=== PATIENT | female | born 1985 | race Caucasian/White ===

== ENCOUNTER 2017-07-01 15:57 | Emergency (ER) | payer BC ==
[2017-07-01] MEDS ORDERED: Sodium Chloride 0.9% 2.5 ML Syringe FLUSH PRN (16:11)
[2017-07-01] MEDS ORDERED: Sodium Chloride 0.9% 10 ML Syringe FLUSH PRN (16:11)
[2017-07-01] MEDS ORDERED: Ketorolac 30 MG/ML SDV IVPUSH ONE (16:11)
--- NOTE | 2017-07-01 16:12 | EDM.PDOC ---
ED HPI GENERAL MEDICAL PROBLEM - General Chief Complaint: Chest Pain Stated Complaint: CHEST PAIN Time Seen by Provider: 07/01/17 15:59 - History of Present Illness INITIAL COMMENTS - FREE TEXT/NARRATIVE: HISTORY AND PHYSICAL: History of present illness: Patient is a 32-year-old female with no significant past medical or past surgical history and no social history presents with 2 episodes of feeling short of breath and having a catchy like sensation with a skipped beat or palpitation with some chest discomfort. Patient says she had a normal day yesterday and went to sleep at 10 PM and at 10:30 woke from sleep feeling like she could not catch her breath and had some intermittent palpitations and some chest discomfort which she says was more related to her breathing than actual discomfort.. She said that her arm got numb, she thought it was only her left arm, and she had no cough lightheadedness nausea vomiting or abdominal pain. The patient said she went and did meditation breathing and the episode lasted approximately 1 hour and then stopped and she went back to bed and slept the whole night. She woke up this morning at her usual time and says that she has had a persistent headache throughout the day today she does get headaches often but this seems to just be worse than usual. She has no neck pain no nausea no vomiting. The patient says that she was at her desk at 1 PM today and a similar episode occurred where she felt a weird irregular heartbeat/catchy like sensation and then she felt like she could not catch her breath and she felt short of breath. Again she had discomfort which she describes more as related to the shortness of breath than to actual discomfort. Below this episode and the earlier episode she says it was more midsternal with the discomfort but again related more to breathing and there was no radiation of the discomfort. She says that it has eased up otology here and she has no associated vomiting fever abdominal pain leg pain or swelling. Patient has no significant family history and only drinks occasionally. Patient is on oral control since she was 17 years of age. Patient says she did have a period of time when she was having anxiety issues and panic attacks and this occurred when she was taken off her control pills. She started having anxiety issues was placed on Zoloft which made her feel worse which she stopped and she got back on control she says that the panic attacks stopped. She has not had them ever since. She says she does not feel particularly stressed. Review of systems: As per history of present illness and below otherwise all systems reviewed and negative. Past medical history: As per history of present illness and as reviewed below otherwise noncontributory. Surgical history: As per history of present illness and as reviewed below otherwise noncontributory. Social history: No reported history of drug or alcohol abuse. Family history: As per history of present illness and as reviewed below otherwise noncontributory. Physical exam: General: Well-developed well-nourished female speaking clearly and easily in the ED and seems a little anxious in the room. Vital signs were noted by me HEENT: Atraumatic, normocephalic, pupils reactive, negative for conjunctival pallor or scleral icterus, mucous membranes moist, throat clear, neck supple, nontender, trachea midline. No cervical adenopathy nuchal rigidity or discrete sinus or scalp tenderness Lungs: Clear to auscultation, breath sounds equal bilaterally, chest nontender. Heart: S1S2, regular, negative for clicks, rubs, or JVD. Abdomen: Soft, nondistended, nontender. Negative for masses or hepatosplenomegaly. Negative for costovertebral tenderness. Pelvis: Stable nontender. Genitourinary: Deferred. Rectal: Deferred. Extremities: Atraumatic, negative for cords or calf pain. Neurovascular unremarkable. No pedal edema or leg asymmetry Neuro: Awake, alert, oriented. Cranial nerves II through XII unremarkable. Cerebellum unremarkable. Motor and sensory unremarkable throughout. Exam nonfocal. Diagnostics: EKG CBC CMP troponin d-dimer TSH UA UCG chest x-ray Therapeutics: IV O2 monitor Toradol She took aspirin earlier today Currently in the ED we are waiting the patient's workup and according to nursing she is having occasional PVCs and the patient is staring at the monitor observing these and is feeling somewhat anxious about them. I was made aware of this and we will try to reassure her. Repeat vitals [id number] reveal a blood pressure which is much improved at 118/78 in her rate is 74 and a respiratory rate of 18. All lab tests will be discussed with patient and we are currently waiting the chest x-ray. I will discuss with her the PVCs and the need for follow-up to monitor and primary care and/or Cardiologic involvement. When I was in the room discussing the patient's testing results I did see that the patient was having PVC's I discussed all testing results with the patient and significant other at bedside at 1805pm. I discussed with her possible observation admission and she would like to decline at this time and she has a provider in the clinic. I will give her a prescription for 24-hour Holter to be placed tomorrow morning as he had no ability to place it this evening. I asked her to start journaling her symptoms to push hydration to rest and to avoid caffeinated products. I have stressed with her the importance of returning to the ER if the symptoms evolve or persist or she feels any insecurity with an outpatient workup. She states understanding and accepts this and would like to be discharged. Impression: Episodic palpitations/shortness of breath, frequent PVCs stable Definitive disposition and diagnosis as appropriate pending reevaluation and review of above. chest Pain Score (Numeric/FACES): 5 - Related Data Allergies Allergy/AdvReac Type Severity Reaction Status Date / Time No Known Allergies Allergy Verified 07/01/17 16:02 Home Meds: Home Meds Control 07/01/17 [History] Past Medical History - Past Health History Medical/Surgical History: Denies Medical/Surgical History - Infectious Disease History Infectious Disease History: Reports: None Social & Family History - Family History Family Medical History: Noncontributory - Tobacco Use Smoking Status *Q: Never Smoker - Recreational Drug Use Recreational Drug Use: No ED ROS GENERAL - Review of Systems Review Of Systems: ROS reveals no pertinent complaints other than HPI. ED EXAM, GENERAL - Physical Exam Exam: See Below (See dictation) Course - Vital Signs Last Recorded V/S: Last Vital Signs Temp 36.9 C 07/01/17 16:03 Pulse 74 07/01/17 17:48 Resp 18 07/01/17 17:48 BP 118/78 07/01/17 17:48 Pulse Ox 97 07/01/17 17:48 - Orders/Labs/Meds Orders: Active Orders 24 hr Category Date Time Status Cardiac Monitoring [RC] . DIRECTED Care 07/01/17 16:11 Active EKG Documentation Completion [RC] STAT Care 07/01/17 16:11 Active Oxygen Therapy, ED [RC] ASDIRECTED Care 07/01/17 16:11 Active Pulse Oximetry [RC] ASDIRECTED Care 07/01/17 16:11 Active Chest 1V Frontal [CR] Stat Exams 07/01/17 16:11 Ordered HCG QUALITATIVE,URINE [URCHEM] Stat Lab 07/01/17 17:15 Ordered UA W/MICROSCOPIC [URIN] Stat Lab 07/01/17 17:15 Ordered Sodium Chloride 0.9% [Saline Flush] Med 07/01/17 16:11 Active 10 ml FLUSH ASDIRECTED PRN Sodium Chloride 0.9% [Saline Flush] Med 07/01/17 16:11 Active 2.5 ml FLUSH ASDIRECTED PRN Saline Lock Insert [OM.PC] Stat Oth 07/01/17 16:11 Ordered Medication Orders Sodium Chloride (Saline Flush) 10 ml FLUSH ASDIRECTED PRN PRN Reason: Keep Vein Open Sodium Chloride (Saline Flush) 2.5 ml FLUSH ASDIRECTED PRN PRN Reason: Keep Vein Open Labs: Laboratory Tests 07/01/17 07/01/17 07/01/17 Range/Units 16:25 16:25 16:25 WBC 7.43 (4.0-11.0) K/uL RBC 4.26 L (4.30-5.90) M/uL Hgb 12.0 (12.0-16.0) g/dL Hct 36.3 (36.0-46.0) % MCV 85.2 (80.0-98.0) fL MCH 28.2 (27.0-32.0) pg MCHC 33.1 (31.0-37.0) g/dL RDW Std Deviation 40.2 (28.0-62.0) fl RDW Coeff of Chas 13 (11.0-15.0) % Plt Count 220 (150-400) K/uL MPV 11.00 (7.40-12.00) fL Neut % (Auto) 45.8 L (48.0-80.0) % Lymph % (Auto) 42.4 H (16.0-40.0) % Conway % (Auto) 10.4 (0.0-15.0) % Eos % (Auto) 1.3 (0.0-7.0) % Baso % (Auto) 0.1 (0.0-1.5) % Neut # (Auto) 3.4 (1.4-5.7) K/uL Lymph # (Auto) 3.2 H (0.6-2.4) K/uL Conway # (Auto) 0.8 (0.0-0.8) K/uL Eos # (Auto) 0.1 (0.0-0.7) K/uL Baso # (Auto) 0.0 (0.0-0.1) K/uL D-Dimer, Quantitative 0.26 (0.0-0.52) mg/LFEU Sodium 139 (136-145) mmol/L Potassium 3.8 (3.5-5.1) mmol/L Chloride 104 (98-107) mmol/L Carbon Dioxide 24.6 (21.0-32.0) mmol/L BUN 13 (7.0-18.0) mg/dL Creatinine 0.8 (0.6-1.0) mg/dL Est Cr Clr Drug Dosing 91.68 mL/min Estimated GFR (MDRD) > 60.0 ml/min Glucose 101 (74-106) mg/dL Calcium 9.0 (8.5-10.1) mg/dL Total Bilirubin 0.2 (0.2-1.0) mg/dL AST 18 (15-37) IU/L ALT 17 (14-63) IU/L Alkaline Phosphatase 38 L (46-116) U/L Troponin I < 0.050 (0.000-0.056) ng/mL Total Protein 7.4 (6.4-8.2) g/dL Albumin 3.0 L (3.4-5.0) g/dL Globulin 4.4 H (2.0-3.5) g/dL Albumin/Globulin Ratio 0.7 L (1.3-2.8) TSH 3rd Generation 2.16 (0.36-3.74) uIU/mL Urine Color Urine Appearance Urine pH (5.0-8.0) Ur Specific [place] (1.001-1.035) Urine Protein (NEGATIVE) mg/dL Urine Glucose (UA) (NEGATIVE) mg/dL Urine Ketones (NEGATIVE) mg/dL Urine Occult Blood (NEGATIVE) Urine Nitrite (NEGATIVE) Urine Bilirubin (NEGATIVE) Urine Urobilinogen (<2.0) EU/dL Ur Leukocyte Esterase (NEGATIVE) Urine RBC (0-2/HPF) Urine WBC (0-5/HPF) Ur Epithelial Cells (NONE-FEW) Urine Bacteria (NEGATIVE) Urine HCG, Qual (NEGATIVE) 07/01/17 07/01/17 Range/Units 17:15 17:15 WBC (4.0-11.0) K/uL RBC (4.30-5.90) M/uL Hgb (12.0-16.0) g/dL Hct (36.0-46.0) % MCV (80.0-98.0) fL MCH (27.0-32.0) pg MCHC (31.0-37.0) g/dL RDW Std Deviation (28.0-62.0) fl RDW Coeff of Chas (11.0-15.0) % Plt Count (150-400) K/uL MPV (7.40-12.00) fL Neut % (Auto) (48.0-80.0) % Lymph % (Auto) (16.0-40.0) % Conway % (Auto) (0.0-15.0) % Eos % (Auto) (0.0-7.0) % Baso % (Auto) (0.0-1.5) % Neut # (Auto) (1.4-5.7) K/uL Lymph # (Auto) (0.6-2.4) K/uL [place] # (Auto) (0.0-0.8) K/uL Eos # (Auto) (0.0-0.7) K/uL Baso # (Auto) (0.0-0.1) K/uL D-Dimer, Quantitative (0.0-0.52) mg/LFEU Sodium (136-145) mmol/L Potassium (3.5-5.1) mmol/L Chloride (98-107) mmol/L Carbon Dioxide (21.0-32.0) mmol/L BUN (7.0-18.0) mg/dL Creatinine (0.6-1.0) mg/dL Est Cr Clr Drug Dosing mL/min Estimated GFR (MDRD) ml/min Glucose (74-106) mg/dL Calcium (8.5-10.1) mg/dL Total Bilirubin (0.2-1.0) mg/dL AST (15-37) IU/L ALT (14-63) IU/L Alkaline Phosphatase (46-116) U/L Troponin I (0.000-0.056) ng/mL Total Protein (6.4-8.2) g/dL Albumin (3.4-5.0) g/dL Globulin (2.0-3.5) g/dL Albumin/Globulin Ratio (1.3-2.8) TSH 3rd Generation (0.36-3.74) uIU/mL Urine Color YELLOW Urine Appearance CLEAR Urine pH 6.0 (5.0-8.0) Ur Specific [place] 1.020 (1.001-1.035) Urine Protein NEGATIVE (NEGATIVE) mg/dL Urine Glucose (UA) NEGATIVE (NEGATIVE) mg/dL Urine Ketones NEGATIVE (NEGATIVE) mg/dL Urine Occult Blood NEGATIVE (NEGATIVE) Urine Nitrite NEGATIVE (NEGATIVE) Urine Bilirubin NEGATIVE (NEGATIVE) Urine Urobilinogen 0.2 (<2.0) EU/dL Ur Leukocyte Esterase NEGATIVE (NEGATIVE) Urine RBC 0-1 (0-2/HPF) Urine WBC 0-1 (0-5/HPF) Ur Epithelial Cells OCCASIONAL (NONE-FEW) Urine Bacteria RARE (NEGATIVE) Urine HCG, Qual NEGATIVE (NEGATIVE) Meds: Medications Generic Name Dose Route Start Last Admin Trade Name Freq PRN Reason Stop Dose Admin Sodium Chloride 10 ml 07/01/17 16:11 Saline Flush FLUSH ASDIRECTED PRN Keep Vein Open Sodium Chloride 2.5 ml 07/01/17 16:11 Saline Flush FLUSH ASDIRECTED PRN Keep Vein Open Discontinued Medications Generic Name Dose Route Start Last Admin Trade Name Freq PRN Reason Stop Dose Admin Ketorolac Tromethamine 30 mg 07/01/17 16:11 07/01/17 16:55 Toradol IVPUSH 07/01/17 16:12 30 mg ONETIME ONE Administration Departure - Departure Time of Disposition: 18:14 Disposition: Home, Self-Care 01 Condition: Good Clinical Impression: PVCs (premature ventricular contractions) Dyspnea Qualifiers: Dyspnea type: unspecified Qualified Code(s): R06.00 - Dyspnea, unspecified - Discharge Information Referrals: PCP,None [Primary Care Provider] - Forms: ED Department Discharge Additional Instructions: The following information is given to patients seen in the emergency department who are being discharged to home. This information is to outline your options for follow-up care. We provide all patients seen in our emergency department with a follow-up referral. The need for follow-up, as well as the timing and circumstances, are variable depending upon the specifics of your emergency department visit. If you don't have a primary care physician on staff, we will provide you with a referral. We always advise you to contact your personal physician following an emergency department visit to inform them of the circumstance of the visit and for follow-up with them and/or the need for any referrals to a consulting specialist. The emergency department will also refer you to a specialist when appropriate. This referral assures that you have the opportunity for followup care with a specialist. All of these measure are taken in an effort to provide you with optimal care, which includes your followup. Under all circumstances we always encourage you to contact your private physician who remains a resource for coordinating your care. When calling for followup care, please make the office aware that this follow-up is from your recent emergency room visit. If for any reason you are refused follow-up, please contact the [facility] emergency department at and ask to speak to the emergency department charge nurse. [facility] Primary care- [place] [address] Please go and have a Holter monitor placed tomorrow using the prescription you have been given and start journaling your symptoms as we discussed. Rest push hydration and avoid caffeinated products. Please contact her provider in the clinic to schedule a follow-up to be done after the Holter monitor is completed. Return to ER as needed and as we discussed. - My Orders Last 24 Hours: My Active Orders 07/01/17 16:11 Cardiac Monitoring [RC] . DIRECTED EKG Documentation Completion [RC] STAT Oxygen Therapy, ED [RC] ASDIRECTED Pulse Oximetry [RC] ASDIRECTED Chest 1V Frontal [CR] Stat Sodium Chloride 0.9% [Saline Flush] 10 ml FLUSH ASDIRECTED PRN Sodium Chloride 0.9% [Saline Flush] 2.5 ml FLUSH ASDIRECTED PRN Saline Lock Insert [OM.PC] Stat 07/01/17 17:15 HCG QUALITATIVE,URINE [URCHEM] Stat UA W/MICROSCOPIC [URIN] Stat - Assessment/Plan Last 24 Hours: My Active Orders 07/01/17 16:11 Cardiac Monitoring [RC] . DIRECTED EKG Documentation Completion [RC] STAT Oxygen Therapy, ED [RC] ASDIRECTED Pulse Oximetry [RC] ASDIRECTED Chest 1V Frontal [CR] Stat Sodium Chloride 0.9% [Saline Flush] 10 ml FLUSH ASDIRECTED PRN Sodium Chloride 0.9% [Saline Flush] 2.5 ml FLUSH ASDIRECTED PRN Saline Lock Insert [OM.PC] Stat 07/01/17 17:15 HCG QUALITATIVE,URINE [URCHEM] Stat UA W/MICROSCOPIC [URIN] Stat
[2017-07-01 17:27] LABS: CHLORIDE,CL 104 mmol/L (98-107); SODIUM,NA 139 mmol/L (136-145)
--- NOTE | 2017-07-02 10:30 | CR ---
EXAM DATE: 07/01/17 PATIENT'S AGE: 32 Patient: RUSTY MONTANO Facility: [place], [place] Site . Site : 1985 Study: XRay Chest [id number] 6:18:17 PM Ordering Physician: Dixon Hairston Final Report: Indication: Chest pain, shortness of breath Technique: Chest 1 view Comparison: None Findings/Impression: Cardiovascular and mediastinum: Heart size and vasculature are normal in caliber and appearance. Mediastinum is within normal limits. Lungs and pleural space: Lungs are clear. No sign of infiltrate or mass. No sign of pleural effusion. No pneumothorax. Bones and soft tissues: No significant findings. Dictated by Alondra Humphrey MD @ Jul 01 2017 6:49PM (Electronic Signature) Report Signed by Proxy. [facility] MED[facility] CENTERJulio
== END 2017-07-01 18:35 | disposition home or self-care (01) ==
LOC: MW.ED 15:57
DX: I49.3 Ventricular premature depolarization (principal); R06.00 Dyspnea, unspecified
CPT/HCPCS: 36415; 71045; 80053; 81001; 81025; 84443; 84484; 85025; 85379; 93005; 96374; 99285; J1885; 99283

== ENCOUNTER 2019-09-25 22:01 | Emergency (ER) | payer BC ==
[2019-09-25] MEDS ORDERED: Diphtheria,Pertussis(Acell),Tetanus Vaccine 0.5 ML Syringe IM ONE (22:23)
--- NOTE | 2019-09-25 22:27 | EDM.PDOC ---
ED HPI GENERAL MEDICAL PROBLEM - General Chief Complaint: Laceration Stated Complaint: LACERATION UPPER LIP Time Seen by Provider: 09/25/19 22:19 - History of Present Illness INITIAL COMMENTS - FREE TEXT/NARRATIVE: History of present illness: [] This patient was playing badminton when the racquet broke apart and the frame over the web trainings hit her in the lip. She has no other injury and says it is only skin. She does not have any neck pain and was not knocked down. Review of systems: As per history of present illness and below otherwise all systems reviewed and negative. Past medical history: As per history of present illness and as reviewed below otherwise noncontributory. Surgical history: As per history of present illness and as reviewed below otherwise noncontributory. Social history: No reported history of drug or alcohol abuse. Family history: As per history of present illness and as reviewed below otherwise noncontributory. Physical exam: Constitutional - well developed, well-nourished and in no acute distress HEENT -fine cleared by Nexus criteria the patient has a 1 cm U-shaped laceration based laterally toward the right in the upper lip which passes through the vermilion border. It is full-thickness but not through and through. She is normocephalic, no evidence of trauma - external nose and mouth normal - no mass in neck and no JVD - mucosae moist EYES - full EOM, PERRL, no icterus - no evidence of inflammation, injection, or drainage Respiratory - no respiratory distress, equal bilateral expansion, lungs clear to auscultation and no abnormal lung sounds Cardiovascular - Regular Rhythm with S1 and S2 appreciated and no murmur, gallop or rub. Peripheral pulses symmetrically normal in all four extremities GI - abdomen soft without distension or organomegaly - normal bowel sounds - no guard or rebound Musculoskeletal no gross deformity of long bones or joints - no tenderness, swelling or edema Neurologic - Alert and oriented times four - CN II-XII grossly intact - motor sensory and coordination symmetrically normal Psychiatric - appropriate mood and affect with normal thought content Hematologic - No petechiae or purpura - mucosa appropriate color and sclera not pale - normal nail bed color and refill Integument - no rash or evidence of trauma - normal turgor Diagnostics: [] Therapeutics: [] Impression: [] Plan: [] Definitive disposition and diagnosis as appropriate pending reevaluation and review of above. lip Pain Score (Numeric/FACES): 2 - Related Data Allergies Allergy/AdvReac Type Severity Reaction Status Date / Time sulfamethoxazole Allergy Other Verified 09/25/19 22:19 [From Bactrim] trimethoprim [From Bactrim] Allergy Other Verified 09/25/19 22:19 Home Meds: Home Meds . [No Known Home Meds] 09/25/19 [History] Past Medical History - Past Health History Medical/Surgical History: Denies Medical/Surgical History - Infectious Disease History Infectious Disease History: Reports: None - Past Surgical History HEENT Surgical History: Reports: Oral Surgery Other Musculoskeletal Surgeries/Procedures:: hip surgery Social & Family History - Family History Family Medical History: Noncontributory - Tobacco Use Smoking Status *Q: Never Smoker Second Hand Smoke Exposure: No - Recreational Drug Use Recreational Drug Use: No ED ROS GENERAL - Review of Systems Review Of Systems: Comprehensive ROS is negative, except as noted in HPI. ED EXAM, SKIN/RASH Exam: See Below Text/Narrative:: Physical exam is in my HPI ED SKIN PROCEDURES - Laceration/Wound Repair Face Appearance: Superficial Distal NVT: Neuro & Vascular Intact Anesthetic Type: Local Local Anesthesia - Lidocaine (Xylocaine): 1% Plain Local Anesthetic Volume: 3cc Skin Prep: Saline Exploration/Debridement/Repair: In a Bloodless Field Closed with: Sutures Lac/Wound length In cm: 1 Suture Size: 6-0 Suture Type: Nylon # of Sutures: 5 Course - Vital Signs Text/Narrative:: The laceration was 1 cm in length and it took 5 stitches to close it Last Recorded V/S: Last Vital Signs Temp 97.0 F 09/25/19 22:16 Pulse 104 H 09/25/19 22:16 Resp 16 09/25/19 22:16 BP 125/77 09/25/19 22:16 Pulse Ox 95 09/25/19 22:16 - Orders/Labs/Meds Orders: Active Orders 24 hr Category Date Time Status Vaccines to be Administered [RC] PER UNIT ROUTINE Care 09/25/19 22:23 Active Meds: Medications Discontinued Medications Generic Name Dose Route Start Last Admin Trade Name Freq PRN Reason Stop Dose Admin Diphtheria/Tetanus/Acell Pertussis 0.5 ml 09/25/19 22:23 09/25/19 22:42 Adacel IM 09/25/19 22:24 0.5 ml .ONCE ONE Administration Lidocaine HCl 5 ml 09/25/19 22:23 09/25/19 22:43 Xylocaine-Mpf 1% INJECT 09/25/19 22:24 5 ml ONETIME ONE Administration Departure - Departure Time of Disposition: 23:20 Disposition: Home, Self-Care 01 Condition: Good Clinical Impression: Laceration of lip - Discharge Information Instructions: Laceration Care, Adult Referrals: PCP,None [Primary Care Provider] - Forms: ED Department Discharge Additional Instructions: The following information is given to patients seen in the emergency department who are being discharged to home. This information is to outline your options for follow-up care. We provide all patients seen in our emergency department with a follow-up referral. The need for follow-up, as well as the timing and circumstances, are variable depending upon the specifics of your emergency department visit. If you don't have a primary care physician on staff, we will provide you with a referral. We always advise you to contact your personal physician following an emergency department visit to inform them of the circumstance of the visit and for follow-up with them and/or the need for any referrals to a consulting specialist. The emergency department will also refer you to a specialist when appropriate. This referral assures that you have the opportunity for follow-up care with a specialist. All of these measure are taken in an effort to provide you with optimal care, which includes your follow-up. Under all circumstances we always encourage you to contact your private physician who remains a resource for coordinating your care. When calling for follow-up care, please make the office aware that this follow-up is from your recent emergency room visit. If for any reason you are refused follow-up, please contact the [facility] Emergency Department at and asked to speak to the emergency department charge nurse. [facility] - Primary Care [address] [place] [id number] [address] You should come out in 5 to 7 days Sepsis Event Note (ED) - Evaluation Sepsis Screening Result: No Definite Risk - Focused Exam Vital Signs: Vital Signs Temp Pulse Resp BP Pulse Ox 09/25/19 22:16 97.0 F 104 H 16 125/77 95 - My Orders Last 24 Hours: My Active Orders 09/25/19 22:23 Vaccines to be Administered [RC] PER UNIT ROUTINE - Assessment/Plan Last 24 Hours: My Active Orders 09/25/19 22:23 Vaccines to be Administered [RC] PER UNIT ROUTINE
== END 2019-09-25 23:30 | disposition home or self-care (01) ==
LOC: MW.ED 22:01
DX: S01.511A Laceration without foreign body of lip, initial encounter (principal); Z88.2 Allergy status to sulfonamides; Z23 Encounter for immunization; W22.8XXA Striking against or struck by other objects, initial encounter
CPT/HCPCS: 12011; 90471; 90715; 99283; J2001; 99282

== ENCOUNTER 2020-06-25 02:36 | Emergency (ER) | payer BC ==
[2020-06-25] MEDS ORDERED: Sodium Chloride 0.9% 1,000 ML IV ONE (03:17)
[2020-06-25] MEDS ORDERED: Sodium Chloride 0.9% 10 ML Syringe FLUSH PRN (03:17)
[2020-06-25] MEDS ORDERED: Ondansetron 4 MG/2 ML SDV IVPUSH ONE (03:17)
[2020-06-25 03:36] LABS: BLOOD UREA NITROGEN,BUN 12 mg/dL (7.0-18.0); CARBON DIOXIDE,CO2 21.6 mmol/L (21.0-32.0); CHLORIDE,CL 106 mmol/L (98-107); GLUCOSE RANDOM 119 mg/dL (74-106); LIPASE 145 U/L (73-393); POTASSIUM,K 3.8 mmol/L (3.5-5.1); SODIUM,NA 143 mmol/L (136-145)
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
== END 2020-06-25 04:37 | disposition home or self-care (01) ==
LOC: MW.ED 02:36
DX: F10.129 Alcohol abuse with intoxication, unspecified (principal); R10.816 Epigastric abdominal tenderness; R11.2 Nausea with vomiting, unspecified; Y90.7 Blood alcohol level of 200-239 mg/100 ml; Z88.1 Allergy status to other antibiotic agents
CPT/HCPCS: 36415; 80053; 80305; 80307; 81001; 81025; 83690; 85025; 93005; J2405; J7030; 96374; 99284-25

== ENCOUNTER 2020-10-12 14:52 | Emergency (ER) | payer OTHER, BC ==
[2020-10-12] MEDS ORDERED: Sodium Chloride 0.9% 2.5 ML Syringe FLUSH PRN (16:03)
[2020-10-12] MEDS ORDERED: Sodium Chloride 0.9% 10 ML Syringe FLUSH PRN (16:03)
[2020-10-12] MEDS ORDERED: diphenhydrAMINE 50 MG/ML SDV IVPUSH ONE (16:04)
[2020-10-12] MEDS ORDERED: Metoclopramide 10 MG/2 ML SDV IVPUSH ONE (16:04)
[2020-10-12] MEDS ORDERED: Sodium Chloride 0.9% 1,000 ML IV ONE (16:04)
[2020-10-12] MEDS ORDERED: Acetaminophen/Butalbital/Caffeine 325-50-40 MG Tab PO ONE (16:05)
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
[2020-10-12 17:22] LABS: BLOOD UREA NITROGEN,BUN 13 mg/dL (7.0-18.0); CARBON DIOXIDE,CO2 24.3 mmol/L (21.0-32.0); CHLORIDE,CL 101 mmol/L (98-107); GLUCOSE RANDOM 92 mg/dL (74-106); POTASSIUM,K 3.7 mmol/L (3.5-5.1); SODIUM,NA 138 mmol/L (136-145)
--- NOTE | 2020-10-12 17:54 | CT ---
INDICATION: Concussion. TECHNIQUE: Noncontrast CT images were acquired through the brain. COMPARISON: None. FINDINGS: The ventricles and sulci are within normal limits for patient age. No mass effect or midline shift. The lee-white differentiation is maintained. No acute intracranial hemorrhage or pathologic extra-axial fluid collection. The calvarium is intact. The globes are symmetric. The visualized paranasal sinuses and mastoid air cells are clear. IMPRESSION: No acute intracranial hemorrhage or mass effect. Please note that all CT scans at this facility use dose modulation, iterative reconstruction, and/or weight-based dosing when appropriate to reduce radiation dose to as low as reasonably achievable. Dictated by Dat Abraham MD @ 10/12/2020 5:52:[address] Dat Abraham @ Oct 12 2020 5:52PM
== END 2020-10-12 18:43 | disposition home or self-care (01) ==
LOC: MW.ED 14:52
DX: S06.0X9A Concussion with loss of consciousness of unspecified duration, initial encounter (principal); Z88.2 Allergy status to sulfonamides; V94.0XXA Hitting object or bottom of body of water due to fall from watercraft, initial encounter
CPT/HCPCS: 36415; 70450; 80053; 85025; 96374; 96375; 99284; A9270; J1200; J2765; J7030

== ENCOUNTER 2022-01-14 20:19 | Inpatient (IN) | payer BC ==
[2022-01-14] MEDS: Lactated Ringers 1,000 ML IV SCH (20:30)
[2022-01-14] MEDS ORDERED: Misoprostol 25 MCG (1/4 of 100 MCG) Tab VAG PRN ×2 (21:02)
[2022-01-14] MEDS ORDERED: Carboprost Tromethamine 250 MCG/1 ML Amp IM PRN (21:02)
[2022-01-14] MEDS ORDERED: Sodium Chloride 0.9% 10 ML Syringe FLUSH PRN (21:02)
[2022-01-14] MEDS ORDERED: Methylergonovine 0.2 MG/1 ML Amp IM PRN (21:02)
[2022-01-14] MEDS ORDERED: Sodium Chloride 0.9% 2.5 ML Syringe FLUSH PRN (21:02)
[2022-01-14] MEDS ORDERED: Misoprostol 200 MCG Tab PO PRN (21:02)
[2022-01-14] MEDS ORDERED: Lidocaine 1% 50 ML MDV INJECT PRN (21:02)
[2022-01-14] MEDS ORDERED: Tranexamic Acid 1,000 MG in Sodium Chloride 0.9% 100 ML IV PRN (21:02)
[2022-01-14] MEDS ORDERED: Butorphanol 1 MG/ML SDV IVPUSH PRN (21:02)
[2022-01-14] MEDS ORDERED: Terbutaline 1 MG/ML SDV SUBCUT PRN (21:02)
[2022-01-14] MEDS ORDERED: Sodium Chloride 0.9% 20 ML SDV IV PRN (21:02)
[2022-01-14] MEDS ORDERED: Water For Irrigation,Sterile 1,000 ML Container IRR PRN (21:02)
[2022-01-14] MEDS ORDERED: Ampicillin 2 GM in Sodium Chloride 0.9% 100 ML IV ONE (21:02)
[2022-01-14] MEDS ORDERED: Oxytocin/0.9 % Sodium Chloride 30 UNIT/500 ML BAG IV SCH ×2 (21:15)
[2022-01-15] MEDS ORDERED: UNISOM PO ONE (00:45)
[2022-01-15] MEDS ORDERED: Ropivacaine/PF 400 MG/200 ML PCA ONE (10:00)
[2022-01-15 10:43] LABS: CARBON DIOXIDE,CO2 23.2 mmol/L (21.0-32.0); POTASSIUM,K 3.6 mmol/L (3.5-5.1)
[2022-01-15] MEDS ORDERED: ePHEDrine 50 MG/ML SDV IVPUSH PRN (11:14)
[2022-01-15] MEDS ORDERED: Ropivacaine HCl/PF 400 MG in Premix Bag 1 BAG EPIDUR SCH (11:15)
[2022-01-15] MEDS ORDERED: Phenylephrine HCl In 0.9% NaCl 1 MG/10 ML Vial IVPUSH SCH (11:15)
[2022-01-15] MEDS ORDERED: Acetaminophen 500 MG Tab PO PRN (22:44)
[2022-01-15] MEDS ORDERED: Ibuprofen 400 MG Tab PO PRN (22:44)
[2022-01-15] MEDS ORDERED: Lanolin 100% Cream 7 GM Tube TOP PRN (22:44)
[2022-01-15] MEDS ORDERED: Bisacodyl 10 MG Supp RECTAL PRN (22:44)
[2022-01-15] MEDS ORDERED: Witch Hazel Medicated Pads 40/Jar TOP PRN (22:44)
[2022-01-15] MEDS ORDERED: Benzocaine/Menthol 20%-0.5% Spray 78 GM Cannister TOP PRN (22:44)
[2022-01-16] MEDS: Acetaminophen 500 MG Tab PO PRN ×2 (00:03→04:58)
[2022-01-16] MEDS: Ibuprofen 800 MG Tab PO PRN ×3 (00:06→22:10)
[2022-01-16] MEDS: Lactated Ringers 1,000 ML IV SCH (00:10)
[2022-01-16 05:58] LABS: CARBON DIOXIDE,CO2 22.1 mmol/L (21.0-32.0); POTASSIUM,K 3.3 mmol/L (3.5-5.1)
[2022-01-16] MEDS: Docusate Sodium 100 MG Cap PO PRN ×2 (09:10→22:10)
[2022-01-16] MEDS: oxyCODONE 5 MG Tab PO PRN ×2 (17:43→22:09)
[2022-01-17] MEDS: Ibuprofen 800 MG Tab PO PRN (06:00)
== END 2022-01-17 09:53 | disposition home or self-care (01) | DRG 560 ==
LOC: MW.OBCHECK 20:19 → MW.OB 20:19 → MW.OBCHECK 01-15 05:08 → MW.OB 01-15 05:09 → OBSVTOIN 01-15 22:07 → MW.OB 01-16 01:30
PROVIDERS: ADMIT Obstetrics & Gynecology; ATTEND Obstetrics & Gynecology
PROC: 10D07Z6 Extraction of Products of Conception, Vacuum, Via Natural or Artificial Opening (ICD-10-PCS; principal; 2022-01-16)
PROC: 3E0R3BZ Introduction of Anesthetic Agent into Spinal Canal, Percutaneous Approach (ICD-10-PCS; 2022-01-16)
PROC: 00HU33Z Insertion of Infusion Device into Spinal Canal, Percutaneous Approach (ICD-10-PCS; 2022-01-16)
PROC: 0UQG7ZZ Repair Vagina, Via Natural or Artificial Opening (ICD-10-PCS; 2022-01-16)
PROC: 3E0P7VZ Introduction of Hormone into Female Reproductive, Via Natural or Artificial Opening (ICD-10-PCS; 2022-01-16)
DX: O14.04 Mild to moderate pre-eclampsia, complicating childbirth (principal); Z3A.35 35 weeks gestation of pregnancy; Z37.0 Single live birth; O99.02 Anemia complicating childbirth; D64.9 Anemia, unspecified; O71.4 Obstetric high vaginal laceration alone
CPT/HCPCS: 01967; 36415; 36430; 51702; 59025; 59409; 80053; 82803; 85025; 85027; 85460; 86592; 86850; 86900; 86901; A9270-GY; J2590; J2790; J2795; J7120; U0002

== ENCOUNTER 2023-03-12 19:24 | Emergency (ER) | payer BC, OTHER ==
[2023-03-12 19:55] LABS: APPEARANCE,URINE CLEAR; BILIRUBIN,URINE NEGATIVE (NEGATIVE); COLOR,URINE YELLOW; GLUCOSE,URINE NEGATIVE (NEGATIVE); KETONES,URINE NEGATIVE (NEGATIVE); LEUKOCYTE ESTERASE,URINE NEGATIVE (NEGATIVE); NITRITE,URINE NEGATIVE (NEGATIVE); OCCULT BLOOD,URINE LARGE (NEGATIVE); PROTEIN,URINE NEGATIVE (NEGATIVE); UROBILINOGEN,URINE 0.2 EU/dL (<2.0)
[2023-03-12 19:57] LABS: BASOPHILS ABSOLUTE AUTO 0.04 K/uL (0.00-0.20); BASOPHILS PERCENT AUTO 0.4 % (0.0-1.0); EOSINOPHILS ABSOLUTE AUTO 0.12 K/uL (0.00-0.45); EOSINOPHILS PERCENT AUTO 1.2 % (0.0-6.0); HEMATOCRIT 37.8 % (37.0-47.0); HEMOGLOBIN 12.9 g/dL (12.0-16.0); IMMATURE GRAN ABSOLUTE AUTO 0.02 K/uL (0.00-0.05); IMMATURE GRAN PERCENT AUTO 0.2 % (0.0-0.4); LYMPHOCYTES ABSOLUTE AUTO 3.68 K/uL (1.00-4.80); LYMPHOCYTES PERCENT AUTO 37.4 % (24.0-44.0); MEAN CORPUSCULAR HEMOGLOBIN 27.9 pg (28.0-32.0); MEAN CORPUSCULAR HGB CONC 34.1 g/dL (32.0-36.0); MEAN CORPUSCULAR VOLUME 81.8 fL (83.0-99.0); MEAN PLATELET VOLUME 10.6 fL (9.4-12.3); MONOCYTES ABSOLUTE AUTO 0.65 K/uL (0.00-0.80); MONOCYTES PERCENT AUTO 6.6 % (0.0-8.0); NEUTROPHILS ABSOLUTE AUTO 5.33 K/uL (1.80-7.70); NEUTROPHILS PERCENT AUTO 54.2 % (41.0-71.0); PLATELET COUNT,PLT 232 K/uL (150-400); RED BLOOD CELL COUNT 4.62 M/uL (4.10-5.30); WHITE BLOOD CELL COUNT,WBC 9.84 K/uL (3.9-11.3)
[2023-03-12] MEDS ORDERED: Sodium Chloride 0.9% 1,000 ML IV ONE (20:14)
[2023-03-12 20:22] LABS: BACTERIA,URINE 1+ (NEGATIVE); EPITHELIAL CELLS,URINE MODERATE (NONE-FEW); MUCUS,URINE LIGHT (NONE-MOD); WBC,URINE 0-3 (0-5/HPF)
[2023-03-12] MEDS ORDERED: Ondansetron 4 MG/2 ML SDV IVPUSH ONE (20:34)
[2023-03-12 21:24] LABS: A/G RATIO 1.1 (0.9-1.6); ALBUMIN 3.9 g/dL (3.4-5.0); BILIRUBIN TOTAL 0.3 mg/dL (0.2-1.0); CALCIUM 8.7 mg/dL (8.5-10.1); CARBON DIOXIDE,CO2 22.7 mmol/L (21.0-32.0); EST CRCL DRUG DOSING (CG) 69.98 mL/min; POTASSIUM,K 3.5 mmol/L (3.5-5.1); PROTEIN TOTAL,TP 7.6 g/dL (6.4-8.2)
== END 2023-03-12 22:13 | disposition home or self-care (01) ==
LOC: MW.ED 19:24
DX: O20.0 Threatened abortion (principal); Z3A.01 Less than 8 weeks gestation of pregnancy; Z88.5 Allergy status to narcotic agent; Z88.8 Allergy status to other drugs, medicaments and biological substances
CPT/HCPCS: 36415; 76817; 80053; 81001; 84702; 85025; 86850; 86900; 86901; 90384; 96361; 96372; 96374; 99284; J2405; J7030; 36430; J2790

== ENCOUNTER 2023-10-29 01:01 | Inpatient (IN) | payer BC, OTHER ==
[2023-10-29] MEDS: Lactated Ringers 1,000 ML IV SCH ×2 (01:58→15:25)
[2023-10-29] MEDS ORDERED: ePHEDrine 50 MG/ML SDV IVPUSH PRN ×3 (02:46→13:28)
[2023-10-29] MEDS ORDERED: Phenylephrine HCl In 0.9% NaCl 1 MG/10 ML Syringe IVPUSH PRN ×2 (02:46→13:28)
[2023-10-29] MEDS ORDERED: Methylergonovine 0.2 MG/1 ML Amp IM PRN ×2 (02:51→12:57)
[2023-10-29] MEDS ORDERED: Sodium Chloride 0.9% 10 ML Syringe FLUSH PRN (02:51)
[2023-10-29] MEDS ORDERED: Lidocaine 1% 50 ML MDV INJECT PRN (02:51)
[2023-10-29] MEDS ORDERED: Water For Irrigation,Sterile 1,000 ML Container IRR PRN (02:51)
[2023-10-29] MEDS ORDERED: Carboprost Tromethamine 250 MCG/1 mL Vial IM PRN (02:51)
[2023-10-29] MEDS ORDERED: Sodium Chloride 0.9% 20 ML SDV IV PRN (02:51)
[2023-10-29] MEDS ORDERED: Tranexamic Acid IN NACL,ISO-OS 1,000 MG in Premix Bag 1 BAG IV PRN (02:51)
[2023-10-29] MEDS ORDERED: Butorphanol 2 MG/ML SDV IVPUSH PRN (02:51)
[2023-10-29] MEDS ORDERED: Sodium Chloride 0.9% 2.5 ML Syringe FLUSH PRN (02:51)
[2023-10-29] MEDS ORDERED: Misoprostol 200 MCG Tab PO PRN (02:51)
[2023-10-29] MEDS ORDERED: Ropivacaine HCl/PF 200 ML EPIDUR ONE (02:56)
[2023-10-29 02:57] LABS: HEMATOCRIT 33.1 % (37.0-47.0); HEMOGLOBIN 10.9 g/dL (12.0-16.0); MEAN CORPUSCULAR HGB CONC 32.9 g/dL (32.0-36.0); MEAN CORPUSCULAR VOLUME 82.1 fL (83.0-99.0); PLATELET COUNT,PLT 139 K/uL (150-400); RED BLOOD CELL COUNT 4.03 M/uL (4.10-5.30); WHITE BLOOD CELL COUNT,WBC 9.73 K/uL (3.9-11.3)
[2023-10-29] MEDS ORDERED: Ropivacaine HCl/PF 400 MG in Premix Bag 1 BAG EPIDUR SCH (03:00)
[2023-10-29] MEDS ORDERED: Oxytocin/0.9 % Sodium Chloride 30 UNIT/500 ML BAG IV SCH (03:00)
[2023-10-29] MEDS ORDERED: dexmedeTOMIDine HCl 200 MCG/2 ML SDV EPIDUR SCH (03:00)
[2023-10-29] MEDS: Ondansetron 4 MG/2 ML SDV IVPUSH PRN ×2 (04:03→17:07)
[2023-10-29] MEDS ORDERED: Acetaminophen 500 MG Tab PO ONE (08:57)
[2023-10-29] MEDS ORDERED: ceFAZolin 2 GM in Sodium Chloride 0.9% 50 ML IV ONE (11:59)
[2023-10-29] MEDS ORDERED: Azithromycin 500 MG in Sodium Chloride 0.9% 250 ML IV ONE (11:59)
[2023-10-29] MEDS ORDERED: Oxytocin 10 Units/1 ML SDV ONE ×3 (12:01→12:31)
[2023-10-29] MEDS ORDERED: Dexamethasone 4 MG/ML 5 ML MDV ONE (12:01)
[2023-10-29] MEDS ORDERED: Ondansetron 4 MG/2 ML SDV ONE (12:01)
[2023-10-29] MEDS ORDERED: ceFAZolin 2 GM Vial ONE (12:01)
[2023-10-29] MEDS ORDERED: Azithromycin 500 MG Vial ONE (12:11)
[2023-10-29] MEDS ORDERED: Phenylephrine HCl In 0.9% NaCl 1 MG/10 ML Syringe ONE ×2 (12:12→12:41)
[2023-10-29] MEDS ORDERED: droPERidol 5 MG/2 ML SDV ONE (12:13)
[2023-10-29] MEDS ORDERED: Ropivacaine 0.5% 5 MG/ML 30 ML SDV ONE (12:19)
[2023-10-29] MEDS ORDERED: Morphine PF 10 MG/10 ML SDV ONE (12:19)
[2023-10-29] MEDS ORDERED: Tranexamic Acid 1,000 MG/10 ML Vial ONE (12:31)
[2023-10-29] MEDS ORDERED: Oxytocin 10 Units/1 ML SDV IM PRN (12:57)
[2023-10-29] MEDS ORDERED: Lanolin 100% Cream 7 GM Tube TOP PRN (12:57)
[2023-10-29] MEDS ORDERED: Bisacodyl 10 MG Supp RECTAL PRN (12:57)
[2023-10-29] MEDS ORDERED: Acetaminophen 325 MG Tab PO PRN (12:57)
[2023-10-29] MEDS ORDERED: Misoprostol 200 MCG Tab RECTAL PRN (12:57)
[2023-10-29] MEDS ORDERED: oxyCODONE 5 MG Tab PO PRN (12:57)
[2023-10-29] MEDS ORDERED: Ketorolac 30 MG/ML SDV IVPUSH SCH (13:00)
[2023-10-29] MEDS ORDERED: droPERidol 5 MG/2 ML SDV IVPUSH PRN (13:28)
[2023-10-29] MEDS ORDERED: Ondansetron 4 MG/2 ML SDV IVPUSH PRN ×2 (13:28)
[2023-10-29] MEDS ORDERED: Metoclopramide 10 MG/2 ML SDV IVPUSH PRN (13:28)
[2023-10-29] MEDS ORDERED: fentaNYL 100 MCG/2 ML SDV IVPUSH PRN (13:28)
[2023-10-29] MEDS ORDERED: diphenhydrAMINE 50 MG/ML SDV IVPUSH PRN (13:28)
[2023-10-29] MEDS ORDERED: Albuterol 0.083% 2.5 MG/3 ML Neb Soln NEB PRN (13:28)
[2023-10-29] MEDS ORDERED: Nalbuphine 10 MG/1 ML Vial IVPUSH PRN (13:28)
[2023-10-29] MEDS ORDERED: HYDROmorphone 1 MG/ML Syringe IVPUSH PRN (13:28)
[2023-10-29] MEDS ORDERED: Morphine 2 MG/ML SYRINGE IVPUSH PRN (13:28)
[2023-10-29] MEDS ORDERED: fentaNYL 50 MCG/ML SDV IVPUSH PRN (13:28)
[2023-10-29] MEDS ORDERED: Naloxone 0.4 MG/ML SDV IVPUSH PRN (13:28)
[2023-10-29 14:31] LABS: PH,UMBILICAL ARTERIAL 7.092 (7.18-7.38); PH,UMBILICAL VENOUS 7.123 (7.25-7.45)
[2023-10-29] MEDS: Ketorolac 30 MG/ML SDV IVPUSH SCH (14:45)
[2023-10-29] MEDS: Acetaminophen 1,000 MG in Premix Bag 1 BAG IV SCH (15:26)
[2023-10-29] MEDS: Bupivacaine 0.5% 30 ML SDV ONE (20:10)
[2023-10-29] MEDS: fentaNYL 100 MCG/2 ML SDV ONE (20:11)
[2023-10-29] MEDS: Docusate Sodium 100 MG Cap PO SCH (20:46)
[2023-10-30 05:54] LABS: HEMATOCRIT 27.3 % (37.0-47.0); HEMOGLOBIN 8.9 g/dL (12.0-16.0)
[2023-10-30] MEDS ORDERED: Ibuprofen 800 MG Tab PO PRN (12:57)
[2023-10-30] MEDS ORDERED: Acetaminophen/oxyCODONE 325-10 MG Tab PO PRN (21:11)
[2023-10-30] MEDS: Acetaminophen/oxyCODONE 325-5 MG Tab PO PRN (21:27)
[2023-10-31] MEDS: diphenhydrAMINE 50 MG/ML SDV IVPUSH PRN (00:18)
[2023-10-31] MEDS: Acetaminophen/oxyCODONE 325-5 MG Tab PO PRN (04:19)
== END 2023-10-31 12:08 | disposition home or self-care (01) | DRG 540 ==
LOC: MW.OBCHECK 01:01 → MW.OB 01:03 → MW.OBCHECK 02:51 → MW.OB 02:51 → OBSVTOIN 12:57 → MW.OB 16:05
PROVIDERS: ADMIT Obstetrics & Gynecology; ATTEND Obstetrics & Gynecology
PROC: 3E0R3BZ Introduction of Anesthetic Agent into Spinal Canal, Percutaneous Approach (ICD-10-PCS; 2023-10-29)
PROC: 00HU33Z Insertion of Infusion Device into Spinal Canal, Percutaneous Approach (ICD-10-PCS; 2023-10-29)
PROC: 3E0334Z Introduction of Serum, Toxoid and Vaccine into Peripheral Vein, Percutaneous Approach (ICD-10-PCS; 2023-10-29)
PROC: 10D00Z1 Extraction of Products of Conception, Low, Open Approach (ICD-10-PCS; principal; 2023-10-29 12:30)
DX: O42.02 Full-term premature rupture of membranes, onset of labor within 24 hours of rupture (principal); O62.1 Secondary uterine inertia; O36.63X0 Maternal care for excessive fetal growth, third trimester, not applicable or unspecified; O99.03 Anemia complicating the puerperium; Z37.0 Single live birth; Z3A.38 38 weeks gestation of pregnancy; O26.893 Other specified pregnancy related conditions, third trimester; Z67.11 Type A blood, Rh negative
CPT/HCPCS: 36415; 36430; 51702; 59025; 59409; 82803; 82947; 85014; 85018; 85027; 85460; 86592; 86850; 86900; 86901; A9270-GY; J0131; J0456; J0665; J0690; J1100; J1200; J1790; J1885; J2274; J2371; J2405; J2590; J2790; J2795; J3010; J3490; J7120

== ENCOUNTER 2024-12-29 20:34 | Emergency (ER) | payer BC, OTHER ==
[2024-12-29 21:14] LABS: BASOPHILS ABSOLUTE AUTO 0.05 K/uL (0.00-0.20); BASOPHILS PERCENT AUTO 0.6 % (0.0-1.0); EOSINOPHILS ABSOLUTE AUTO 0.19 K/uL (0.00-0.45); EOSINOPHILS PERCENT AUTO 2.2 % (0.0-6.0); IMMATURE GRAN ABSOLUTE AUTO 0.02 K/uL (0.00-0.05); IMMATURE GRAN PERCENT AUTO 0.2 % (0.0-0.4); LYMPHOCYTES ABSOLUTE AUTO 3.67 K/uL (1.00-4.80); LYMPHOCYTES PERCENT AUTO 43.1 % (24.0-44.0); MEAN PLATELET VOLUME 10.9 fL (9.4-12.3); MONOCYTES ABSOLUTE AUTO 0.65 K/uL (0.00-0.80); MONOCYTES PERCENT AUTO 7.6 % (0.0-8.0); NEUTROPHILS ABSOLUTE AUTO 3.93 K/uL (1.80-7.70); NEUTROPHILS PERCENT AUTO 46.3 % (41.0-71.0); NRBC ABSOLUTE 0.00 K/uL (0.00-0.02); NRBC PERCENT 0.0 /100WBC (0.0-0.2); PLATELET COUNT,PLT 236 K/uL (150-400); RED BLOOD CELL COUNT 4.68 M/uL (4.10-5.30); WHITE BLOOD CELL COUNT,WBC 8.51 K/uL (3.9-11.3)
[2024-12-29] MEDS: Prochlorperazine 10 MG/2 ML SDV IVPUSH ONE (21:17)
[2024-12-29] MEDS: diphenhydrAMINE 50 MG/ML SDV IVPUSH STA (21:17)
[2024-12-29 21:25] LABS: A/G RATIO 1.2 (0.9-1.6); ALANINE AMINOTRANSFERASE,ALT 27 IU/L (14-63); ASPARTATE AMNIOTRANSFERASE,AST 19 IU/L (15-37); BILIRUBIN TOTAL 0.3 mg/dL (0.2-1.0); BLOOD UREA NITROGEN,BUN 10 mg/dL (7.0-18.0); CARBON DIOXIDE,CO2 27.9 mmol/L (21.0-32.0); CHLORIDE,CL 104 mmol/L (98-107); CREATININE 0.9 mg/dL (0.6-1.0); EST CRCL DRUG DOSING (CG) 76.26 mL/min; GLUCOSE RANDOM 106 mg/dL (74-106); POTASSIUM,K 3.7 mmol/L (3.5-5.1); PROTEIN TOTAL,TP 7.5 g/dL (6.4-8.2); SODIUM,NA 140 mmol/L (136-145)
[2024-12-29 21:27] LABS: ESTIMATED GFR 84 mL/min (>60)
[2024-12-29 21:44] LABS: APPEARANCE,URINE CLEAR; GLUCOSE,URINE NEGATIVE (NEGATIVE); OCCULT BLOOD,URINE NEGATIVE (NEGATIVE)
== END 2024-12-30 01:00 | disposition home or self-care (01) ==
LOC: MW.ED 20:34
DX: G43.909 Migraine, unspecified, not intractable, without status migrainosus (principal); R07.9 Chest pain, unspecified
CPT/HCPCS: 36415; 71046; 80053; 81003; 81025; 83690; 83735; 84484; 85025; 93005; 96361; 96374; 96375; 99285; J0780; J1200; J7030; 93010; 99284